=== PATIENT | female | born 1955 | race Caucasian/White ===

== ENCOUNTER 2018-10-29 19:48 | Emergency (ER) | payer MEDICARE, MEDICAID ==
[~2018-10-29] VITALS: Ht 170.2 cm; Wt 76.3 kg
[~2018-10-29 19:48] MED LIST: ALBU8HFA PO; HYDR-3972 PO
[2018-10-29 19:56] VITALS: BP 142/77
[2018-10-29] MEDS ORDERED: NAPR-56 PO (21:57)
[2018-10-29] MEDS: naproxen 500mg tablet PO ONE (22:19)
== END 2018-10-29 22:23 | disposition home or self-care (01) ==
LOC: ER 19:49
DX: S93.492A Sprain of other ligament of left ankle, initial encounter (principal); M85.88 Other specified disorders of bone density and structure, other site; Z98.890 Other specified postprocedural states; Z98.51 Tubal ligation status; Z56.0 Unemployment, unspecified; X50.1XXA Overexertion from prolonged static or awkward postures, initial encounter; Y93.89 Activity, other specified; Y92.89 Other specified places as the place of occurrence of the external cause; Y99.9 Unspecified external cause status
CPT/HCPCS: 29540; 73610; 99283

== ENCOUNTER 2019-06-11 19:44 | Emergency (ER) | payer MEDICAID, MEDICARE ==
[~2019-06-11] VITALS: Ht 170.2 cm; Wt 79.6 kg
[~2019-06-11 19:44] MED LIST changes: +CYCL-1 PO; +LIDO700A32 TOP; +MELO-100 PO
[2019-06-11] MEDS ORDERED: HYDROcodone/acetaminophen 5mg/325mg tablet PO ONE (20:10)
[2019-06-11 20:19] VITALS: BP 111/70
[2019-06-11] MEDS ORDERED: TRAM50TA2 PO (20:30)
== END 2019-06-11 21:04 | disposition home or self-care (01) ==
LOC: ER 19:45
DX: M79.672 Pain in left foot (principal); M81.0 Age-related osteoporosis without current pathological fracture; I25.2 Old myocardial infarction; Z56.0 Unemployment, unspecified; Z98.51 Tubal ligation status; Z98.890 Other specified postprocedural states
CPT/HCPCS: 73630; 99284

== ENCOUNTER 2019-06-15 14:23 | Emergency (ER) | payer MEDICARE, MEDICAID ==
[~2019-06-15] VITALS: Ht 170.2 cm; Wt 79.0 kg
[~2019-06-15 14:23] MED LIST changes: +TRAM50TA2 PO
[2019-06-15 15:46] LABS: BASOPHILS # (AUTO) 0.1 X10'3 (0-0.2); BASOPHILS % (AUTO) 0.6 % (0-1); EOSINOPHILS # (AUTO) 0.1 X10'3 (0-0.9); EOSINOPHILS % (AUTO) 0.3 % (0-6); HEMATOCRIT 33.4 % (35.0-45.0); HEMOGLOBIN 11.6 g/dl (12.0-16.0); LYMPHOCYTES # (AUTO) 1.9 X10'3 (1.1-4.8); LYMPHOCYTES % (AUTO) 10.9 % (21-51); MEAN CORPUSCULAR HEMOGLOBIN 31.5 PG (27.0-31.0); MEAN CORPUSCULAR HGB CONC 34.6 g/dL (33.0-36.5); MEAN CORPUSCULAR VOLUME 90.9 FL (78-98); MEAN PLATELET VOLUME 6.5 FL (7.4-10.4); MONOCYTES # (AUTO) 1.6 X10'3 (0-0.9); MONOCYTES % (AUTO) 8.9 % (2-12); NEUTROPHILS # (AUTO) 13.8 X10'3 (1.8-7.7); NEUTROPHILS % (AUTO) 79.3 % (42-75); PLATELET COUNT 339 X10'3 (140-440); RED BLOOD COUNT 3.67 X10'6 (4.20-5.60); RED CELL DISTRIBUTION WIDTH 13.1 % (11.5-14.5); WHITE BLOOD COUNT 17.4 X10'3 (4.5-11.0)
[2019-06-15 15:56] LABS: ALANINE AMINOTRANSFERASE 21 U/L (12-78); ALBUMIN 2.7 G/DL (3.4-5.0); ALBUMIN/GLOBULIN RATIO 0.6 (1.1-1.5); ALKALINE PHOSPHATASE 239 IU/L (46-116); ANION GAP 9 (8-16); ASPARTATE AMINO TRANSFERASE 15 U/L (10-37); BILIRUBIN,TOTAL 1.1 MG/DL (0.1-1.0); BLOOD UREA NITROGEN 9 MG/DL (7-18); BUN/CREATININE RATIO 10.6 (6.6-38.0); CALCIUM 8.5 MG/DL (8.5-10.1); CHLORIDE 94 MMOL/L (99-107); CREATININE 0.85 MG/DL (0.40-0.90); GLUCOSE 118 MG/DL (70-104); SODIUM 132 MMOL/L (135-145); TOTAL CARBON DIOXIDE 28.9 MMOL/L (24-32); TOTAL PROTEIN 7.1 G/DL (6.4-8.2); eGFR 68 ML/MIN
[2019-06-15 15:59] LABS: POTASSIUM 2.9 MMOL/L (3.5-5.1)
[2019-06-15] MEDS ORDERED: potassium chloride 8mEq ER tablet PO SCH (16:15)
[2019-06-15] MEDS ORDERED: cephalexin 250mg capsule PO ONE (16:20)
[2019-06-15] MEDS ORDERED: sulfamethoxazole/trimethoprim DS (800/160mg) tablet PO ONE (16:20)
--- NOTE | 2019-06-15 16:30 | NUR ---
MD Linton in patient's room at this time.
[2019-06-15 16:32] VITALS: BP 109/58
[2019-06-15] MEDS ORDERED: CEPH500C5 PO (16:36)
[2019-06-15] MEDS ORDERED: SULF1TAB48 PO (16:36)
[2019-06-15] MEDS ORDERED: ketorolac trometh inj. 60 MG/2 ML VIAL IM ONE (16:40)
== END 2019-06-15 16:58 | disposition home or self-care (01) ==
LOC: ER 14:24
DX: L03.116 Cellulitis of left lower limb (principal); M81.0 Age-related osteoporosis without current pathological fracture; I25.2 Old myocardial infarction; Z98.51 Tubal ligation status; Z56.0 Unemployment, unspecified; Z79.2 Long term (current) use of antibiotics; Z79.899 Other long term (current) drug therapy
CPT/HCPCS: 36415; 80053; 83605; 85025; 87040; 99284

== ENCOUNTER 2019-06-20 20:13 | Emergency (ER) | payer MEDICARE, MEDICAID ==
[~2019-06-20] VITALS: Ht 170.2 cm; Wt 76.8 kg
[~2019-06-20 20:13] MED LIST changes: +CEPH500C5 PO; +SULF1TAB48 PO; -TRAM50TA2 PO
[2019-06-20 21:13] LABS: BASOPHILS # (AUTO) 0.1 X10'3 (0-0.2); BASOPHILS % (AUTO) 0.5 % (0-1); EOSINOPHILS # (AUTO) 0.2 X10'3 (0-0.9); EOSINOPHILS % (AUTO) 1.3 % (0-6); HEMATOCRIT 38.4 % (35.0-45.0); HEMOGLOBIN 12.6 g/dl (12.0-16.0); LYMPHOCYTES # (AUTO) 1.8 X10'3 (1.1-4.8); LYMPHOCYTES % (AUTO) 14.1 % (21-51); MEAN CORPUSCULAR HEMOGLOBIN 29.8 PG (27.0-31.0); MEAN CORPUSCULAR HGB CONC 32.7 g/dL (33.0-36.5); MEAN CORPUSCULAR VOLUME 91.2 FL (78-98); MEAN PLATELET VOLUME 6.7 FL (7.4-10.4); MONOCYTES # (AUTO) 0.9 X10'3 (0-0.9); NEUTROPHILS # (AUTO) 9.7 X10'3 (1.8-7.7); NEUTROPHILS % (AUTO) 77.1 % (42-75); PLATELET COUNT 440 X10'3 (140-440); RED BLOOD COUNT 4.21 X10'6 (4.20-5.60); RED CELL DISTRIBUTION WIDTH 13.5 % (11.5-14.5); WHITE BLOOD COUNT 12.6 X10'3 (4.5-11.0)
[2019-06-20 21:26] LABS: ALANINE AMINOTRANSFERASE 40 U/L (12-78); ALBUMIN 2.8 G/DL (3.4-5.0); ALBUMIN/GLOBULIN RATIO 0.6 (1.1-1.5); ALKALINE PHOSPHATASE 331 IU/L (46-116); ANION GAP 7 (8-16); ASPARTATE AMINO TRANSFERASE 29 U/L (10-37); BILIRUBIN,TOTAL 0.4 MG/DL (0.1-1.0); BLOOD UREA NITROGEN 13 MG/DL (7-18); BUN/CREATININE RATIO 14.6 (6.6-38.0); CHLORIDE 100 MMOL/L (99-107); CREATININE 0.89 MG/DL (0.40-0.90); GLUCOSE 112 MG/DL (70-104); POTASSIUM 4.3 MMOL/L (3.5-5.1); SODIUM 136 MMOL/L (135-145); TOTAL CARBON DIOXIDE 28.8 MMOL/L (24-32); TOTAL PROTEIN 7.8 G/DL (6.4-8.2); eGFR 64 ML/MIN
[2019-06-20] MEDS ORDERED: LIDOcaine 1% w/epiNEPHrine 1:200,000 30ml vial IM ONE (21:30)
[2019-06-20 21:41] LABS: BASOPHILS % (MANUAL) 2 % (0-1); EOSINOPHILS % (MANUAL) 2 % (0-6); LYMPHOCYTES % (MANUAL) 17 % (21-51); METAMYLEOCYTES% (MANUAL) 1 % (0-0); MONOCYTES % (MANUAL) 7 % (2-12); NEUTROPHILS % (MANUAL) 72 % (42-75); TOTAL CELLS COUNTED 100
[2019-06-20 21:42] LABS: PLATELET ESTIMATE NORMAL; TOXIC GRANULATION 1+; TOXIC VACUOLATION 1+
[2019-06-20] MEDS ORDERED: vancomycin/NS 1 GM ADD-VANTAGE 250 ML IV ONE (22:20)
[2019-06-20] MEDS ORDERED: CefTRIAXone 2gm/D5W 50ml 50 ML IV ONE (22:20)
[2019-06-20] MEDS ORDERED: HYDROcodone/acetaminophen 5mg/325mg tablet PO ONE (22:30)
[2019-06-20] MEDS ORDERED: ondansetron/PF 4mg/2ml inj IV ONE (22:55)
[2019-06-20 23:30] VITALS: BP 138/78
[2019-06-21] MEDS ORDERED: L. R1CAP4 PO
[2019-06-21] MEDS ORDERED: CLIN150C2 PO
[2019-06-21] MEDS ORDERED: TETanus/Pertussis (Acell)/Diphther VAC/PF (Tdap-Adult) 0.5ml syringe IM ONE (00:15)
== END 2019-06-21 00:37 | disposition home or self-care (01) ==
LOC: ER 20:14
DX: L02.612 Cutaneous abscess of left foot (principal); M81.0 Age-related osteoporosis without current pathological fracture; I25.2 Old myocardial infarction; Z98.51 Tubal ligation status; Z79.2 Long term (current) use of antibiotics; Z79.899 Other long term (current) drug therapy
CPT/HCPCS: 10060; 36415; 80053; 83605; 84145; 85025; 87040; 87070; 87077; 87186; 90471; 90715; 96365; 96375; 99283; J0696; J2405; J3370

== ENCOUNTER 2024-12-24 20:38 | Emergency (ER) | payer BC, MEDICAID ==
[~2024-12-24] VITALS: Ht 167.6 cm; Wt 55.5 kg
[~2024-12-24 20:38] MED LIST changes: -CEPH500C5 PO; +L. R1CAP4 PO; -SULF1TAB48 PO
[2024-12-24 21:43] LABS: BASOPHILS # (AUTO) 0.1 X10'3 (0-0.2); EOSINOPHILS % (AUTO) 0.1 % (0-6); HEMATOCRIT 24.5 % (35.0-45.0); HEMOGLOBIN 8.6 g/dl (12.0-16.0); LYMPHOCYTES # (AUTO) 1.4 X10'3 (1.1-4.8); LYMPHOCYTES % (AUTO) 24.3 % (21-51); MEAN CORPUSCULAR HEMOGLOBIN 34.9 PG (27.0-31.0); MEAN CORPUSCULAR HGB CONC 35.2 g/dL (33.0-36.5); MEAN PLATELET VOLUME 6.9 FL (7.4-10.4); MONOCYTES # (AUTO) 0.6 X10'3 (0-0.9); MONOCYTES % (AUTO) 10.6 % (2-12); NEUTROPHILS # (AUTO) 3.7 X10'3 (1.8-7.7); PLATELET COUNT 128 X10'3 (140-440); RED BLOOD COUNT 2.48 X10'6 (4.20-5.60); RED CELL DISTRIBUTION WIDTH 17.5 % (11.5-14.5); WHITE BLOOD COUNT 5.7 X10'3 (4.5-11.0)
[2024-12-24 22:08] LABS: ALANINE AMINOTRANSFERASE 18 U/L (12-78); ALBUMIN 2.9 G/DL (3.4-5.0); ALBUMIN/GLOBULIN RATIO 0.8 (1.1-1.5); ALKALINE PHOSPHATASE 112 IU/L (46-116); ANION GAP 6 (8-16); ASPARTATE AMINO TRANSFERASE 16 U/L (10-37); BILIRUBIN,TOTAL 0.5 MG/DL (0.1-1.0); BLOOD UREA NITROGEN 11 MG/DL (7-18); BUN/CREATININE RATIO 20.8 (10.0-20.0); CALCIUM 8.4 MG/DL (8.5-10.1); CHLORIDE 94 MMOL/L (99-107); CREATININE 0.53 MG/DL (0.40-0.90); GLUCOSE 111 MG/DL (70-104); MAGNESIUM 1.1 MG/DL (1.5-2.4); SODIUM 130 MMOL/L (135-145); TOTAL CARBON DIOXIDE 29.6 MMOL/L (24-32); TOTAL PROTEIN 6.4 G/DL (6.4-8.2); eCRCL 89 ML/MIN; eGFR > 90 ML/MIN
[2024-12-24 22:12] LABS: POTASSIUM 2.8 MMOL/L (3.5-5.1)
[2024-12-24] MEDS: CefTRIAXone 2gm/D5W 50ml BAG 50 ML IV STA (22:31)
[2024-12-24] MEDS ORDERED: iohexol 300mg/ml 100ml inj. ONE (22:33)
[2024-12-24] MEDS: normal saline 1000ML IV soln IVB ONE (22:54)
[2024-12-25 00:18] VITALS: TEMP 98.6
[2024-12-25] MEDS: potassium Cl 20 mEq SR tablet PO STA (00:28)
[2024-12-25] MEDS ORDERED: CEFD300C3 PO (00:31)
[2024-12-25] MEDS ORDERED: POTA-366 PO (00:31)
[2024-12-25 00:57] VITALS: BP 107/60; PULSE 104; RESP 16; O2SAT 97
== END 2024-12-25 01:01 | disposition home or self-care (01) ==
LOC: ER 20:39
DX: H66.91 Otitis media, unspecified, right ear (principal); E87.6 Hypokalemia; I21.9 Acute myocardial infarction, unspecified; M81.0 Age-related osteoporosis without current pathological fracture; Z79.899 Other long term (current) drug therapy; Z98.51 Tubal ligation status; Z85.3 Personal history of malignant neoplasm of breast
CPT/HCPCS: 36415; 70470; 71045; 80053; 83605; 83735; 85025; 87040; 96365; 99285; J0696; J7030; Q9967